=== PATIENT | male | born 1985 | race American Indian/Alaskan Native ===

== ENCOUNTER 2017-04-10 22:50 | Emergency (ER) | payer SELFPAY ==
[2017-04-10 22:50] VITALS: BMI 26.6
[2017-04-10 23:34] VITALS: BP 144/72; PULSE 72; RESP 20; TEMP 98.6; O2SAT 98
--- NOTE | 2017-04-11 00:34 | C.PDOC ---
History Of Present Illness A 31 y/o male c/o right hand and wrist pain that began after being upset and punching a wall today. Pt denies fever, chills, nausea, vomiting, weakness, numbness, or any other complaints. Time Seen by Provider: 04/10/17 23:41 Chief Complaint (Nursing): Upper Extremity Problem/Injury History Per: Patient History/Exam Limitations: no limitations Onset/Duration Of Symptoms: Hrs Current Symptoms Are (Timing): Still Present Severity: Mild Recent travel outside of the [place] States: No Additional History Per: Patient Past Medical History Reviewed: Historical Data, Nursing Documentation, Vital Signs Vital Signs: Last Vital Signs Temp 98.6 F 04/10/17 23:33 Pulse 72 04/10/17 23:33 Resp 20 04/11/17 00:43 BP 144/72 04/10/17 23:33 Pulse Ox 98 04/11/17 00:36 - [employer] Procedures INJECT/INFUSE NEC (12/17/13) Family History: States: Unknown Family Hx - Social History Hx Alcohol Use: No Hx Substance Use: Yes (occasional marijuana) - Immunization History Hx Tetanus Toxoid Vaccination: Yes Hx Influenza Vaccination: No Hx Pneumococcal Vaccination: No Review Of Systems Constitutional: Negative for: Fever, Chills Gastrointestinal: Negative for: Nausea, Vomiting Musculoskeletal: Positive for: Hand Pain (Right hand and wrist pain) Neurological: Negative for: Weakness, Numbness Physical Exam - Physical Exam Appears: Non-toxic, No Acute Distress Skin: Warm, Dry Head: Atraumatic, Normacephalic Eye(s): bilateral: Normal Inspection Cardiovascular: Rhythm Regular, No Murmur Respiratory: Normal Breath Sounds, No Accessory Muscle Use, No Wheezing Extremity: Normal ROM, Tenderness (Dorsal aspect of the right hand), Capillary Refill (<2secs), No Deformity, No Swelling Extremity: Bilateral: Normal Color And Temperature, Normal ROM Pulses: Left Radial: Normal, Right Radial: Normal Neurological/Psych: Oriented x3, Normal Speech, Normal Cognition, Normal Motor ( Good strength), Normal Sensation, Other (No focal deficit) ED Course And Treatment O2 Sat by Pulse Oximetry: 98 (RA) Pulse Ox Interpretation: Normal Progress Note: Impression: 31 y/o male c?o right hand and wrist pain after puncjinh a wall today. Plans: Motrin PO, XRAY of right hand. XRAY: no fractures or dislocation. Hand was placed in a wrist splint and was advised to follow up with PMD for further evaulation. Disposition Counseled Patient/Family Regarding: Diagnosis, Need For Followup, Rx Given - Disposition Referrals: [facility] [Outside] Disposition: HOME/ ROUTINE Disposition Time: 00:28 Condition: STABLE Additional Instructions: Keep splint on for support May apply ICE to area Take meds as directed Return to ER if worse Prescriptions: Ibuprofen [Motrin] 600 mg PO Q6H #20 tab Instructions: Contusion in Adults (ED) Forms: Work Excuse - Clinical Impression Clinical Impression: Hand injury - Scribe Statement The provider has reviewed the documentation as recorded by the Scribe Shashank langston All medical record entries made by the Scribe were at my direction and personally dictated by me. I have reviewed the chart and agree that the record accurately reflects my personal performance of the history, physical exam, medical decision making, and the department course for this patient. I have also personally directed, reviewed, and agree with the discharge instructions and disposition.
--- NOTE | 2017-04-11 09:36 | RAD ---
PROCEDURE: Right Hand Radiographs. HISTORY: pain, swelling, punched wall COMPARISON: None. FINDINGS: BONES: There is a new minimally displaced intra-articular fracture of the base of the 1st metacarpal consistent with degraded study fracture. There appears to be surrounding soft tissue swelling JOINTS: As above. No osteoarthritic changes. SOFT TISSUES: As above. No radiopaque foreign OTHER FINDINGS: None. IMPRESSION: Mcgowan's fracture base of the 1st metacarpal. . Note that the emergency room PA at the [facility] was informed these findings at 9:34 a.m. with written down and read back verification. . Note that this report was placed in PA review folder for followup
== END 2017-04-11 00:43 | disposition home or self-care (01) ==
LOC: C.ER 22:50
DX: S69.91XA Unspecified injury of right wrist, hand and finger(s), initial encounter (principal); W22.09XA Striking against other stationary object, initial encounter; Y92.89 Other specified places as the place of occurrence of the external cause

== ENCOUNTER 2017-04-11 11:37 | Emergency (ER) | payer OTHER ==
[2017-04-11 11:52] VITALS: BMI 29.0
[2017-04-11 11:56] VITALS: TEMP 98.2
--- NOTE | 2017-04-11 12:59 | C.PDOC ---
History Of Present Illness 31-year-old male, presents to the emergency department called back due to radiology discrepancy. Patient was seen in ED last night due to right hand pain that began after being upset and punching a wall. Patient had an x-ray that was read negative. Radiologist called early today with (+) RIght hand Groton's fracture. Patients was called early today and request to return to ED for splint application. At the time of evaluation, pt still c/o Right hand pain, noted more swelling today. Otherwise, denies weakness, sensory or vascular deficits to Right hand. Time Seen by Provider: 04/11/17 12:02 Chief Complaint (Nursing): Upper Extremity Problem/Injury History Per: Patient History/Exam Limitations: no limitations Current Symptoms Are (Timing): Still Present Severity: Moderate Past Medical History Reviewed: Historical Data, Nursing Documentation, Vital Signs Vital Signs: Last Vital Signs Temp 98.2 F 04/11/17 11:52 Pulse 81 04/11/17 11:52 Resp 18 04/11/17 11:52 BP 131/89 04/11/17 11:52 Pulse Ox 99 04/11/17 14:11 - [facility] Procedures INJECT/INFUSE NEC (12/17/13) Family History: States: No Known Family Hx - Social History Hx Alcohol Use: No Hx Substance Use: Yes (occasional marijuana) - Immunization History Hx Tetanus Toxoid Vaccination: Yes Hx Influenza Vaccination: No Hx Pneumococcal Vaccination: No Review Of Systems Musculoskeletal: Positive for: Hand Pain Physical Exam - Physical Exam Appears: Well, Non-toxic, No Acute Distress Skin: Normal Color, Warm, No Ecchymosis Extremity: Tenderness (tenderness over Right 1st MCPJ, no palpable deformity. No skin changes. Mild discomfort on FAROM of Right hand du eto pain, no neurovascular deficits distally to injury.), Capillary Refill (less than 2sec to Rigt hand), No Deformity, Swelling (diffuse mild dorsal Right hand edema.) Neurological/Psych: Oriented x3, Normal Speech, Normal Motor, Normal Sensation, Normal Reflexes ED Course And Treatment O2 Sat by Pulse Oximetry: 99 Pulse Ox Interpretation: Normal - Other Rad Hand X-Ray: Read By Radiologist Interpretation: Accession No. : [id number]. Patient Name / ID : DEANGELO ASKEW / [id number]. Exam Date : 04/10/2017 23:44:50 ( Approved ). Study Comment : Sex / Age : M / 31Y. Creator : Lucien Cowart MD. Dictator : Lucien Cowart MD. Solder Sprayer : Under Ground Miner : Lucien Cowart MD. Approver2 : Report Date : 04/11/2017 09:35:14. My Comment : . PROCEDURE: Right Hand Radiographs. HISTORY: pain, swelling, punched wall. COMPARISON: None. FINDINGS: BONES: There is a new minimally displaced intra-articular fracture of the base of the 1st metacarpal consistent with degraded study fracture. There appears to be surrounding soft tissue swelling. JOINTS: As above. No osteoarthritic changes. SOFT TISSUES: As above. No radiopaque foreign. OTHER FINDINGS: None. IMPRESSION: Mcgowan's fracture base of the 1st metacarpal. . Note that the emergency room PA at the [facility] was informed these findings at 9:34 a.m. with written down and read back verification. . Note that this report was placed in PA review folder for followup Progress Note: CAse discussed with [id number] and splint with outpt f /u on 04/17/17 scheduled for further eval and tx. Splint applied. Pt advised and ref. for further f/u. Understand, stable for discharge now. Orthopedic Time Performed: 12:20 Time Out: Side verified, Site verified, Patient ID confirmed Procedure: Splint Type: Thumb spica Location: Right, Hand Consent obtained: Emergent consent implied Performed by: Mid-level Provider Diagnosis: Fracture Location: Right Bone: Metacarpal, 1st Disposition Counseled Patient/Family Regarding: Studies Performed, Diagnosis, Need For Followup, Rx Given - Disposition Referrals: Fabi Dos Santos MD [Staff Provider] - Disposition: HOME/ ROUTINE Disposition Time: 14:05 Condition: STABLE Additional Instructions: FOLLOW UP WITH DR. DOS SATNOS SCHEDULED ON KALLI 04/17/2017 AT 2:30 PM SPLINT PAIN MEDICATION NEED RETURN TO ED AT ANY TIME IF ANY WORSENING OR NEW CHANGES. Prescriptions: oxyCODONE/Acetaminophen [Percocet 5/325 mg Tab] 1 tab PO TID #10 tab Instructions: Finger Fracture (ED) - Clinical Impression Clinical Impression: Finger fracture, right - Scribe Statement The provider has reviewed the documentation as recorded by the Elayne Garcia All medical record entries made by the Demetriaibfrederick were at my direction and personally dictated by me. I have reviewed the chart and agree that the record accurately reflects my personal performance of the history, physical exam, medical decision making, and the department course for this patient. I have also personally directed, reviewed, and agree with the discharge instructions and disposition.
[2017-04-11] MEDS ORDERED: Oxycodone/Acetaminophen 5/325 mg Tab PO STA (13:17)
[2017-04-11] MEDS ORDERED: Oxycodone/Acetaminophen 5/325 mg Tab ONE (13:31)
--- NOTE | 2017-04-11 14:36 | RAD ---
PROCEDURE: Right Hand Radiographs. HISTORY: injury COMPARISON: None. FINDINGS: BONES: Normal. No fracture. JOINTS: Normal. No osteoarthritic changes. SOFT TISSUES: Normal. OTHER FINDINGS: None. IMPRESSION: No evidence of acute fracture or dislocation.
[2017-04-11 14:58] VITALS: BP 129/82; PULSE 70; RESP 16; O2SAT 98
== END 2017-04-11 14:58 | disposition home or self-care (01) ==
LOC: C.ER 11:37
DX: S62.211 Bennett's fracture, right hand (principal); W22.8XXD Striking against or struck by other objects, subsequent encounter

== ENCOUNTER 2017-04-16 15:18 | Emergency (ER) | payer OTHER ==
[2017-04-16 15:19] VITALS: BMI 29.0
[2017-04-16 15:24] VITALS: BP 126/79; PULSE 78; RESP 16; TEMP 98.2; O2SAT 98
--- NOTE | 2017-04-16 15:37 | C.PDOC ---
History Of Present Illness 31 y/o male presents to the ED for evaluation of right thumb pain which began around 6 days ago. Patient was evaluated in ED on 04/10 and 04/11 for similar complaints. Patient has failed to follow up as instructed. Patient has [facility] care and wants another referral for Dr. Gooden. Patient has been taking Motrin and applying ice to the affected area with improvement and decreased swelling. Patient denies extremity numbness/weakness. Time Seen by Provider: 04/16/17 15:32 Chief Complaint (Nursing): Upper Extremity Problem/Injury History Per: Patient History/Exam Limitations: no limitations Onset/Duration Of Symptoms: Days Current Symptoms Are (Timing): Still Present Quality: "Pain" Additional History Per: Patient Past Medical History Reviewed: Historical Data, Nursing Documentation, Vital Signs Vital Signs: Last Vital Signs Temp 98.2 F 04/16/17 15:22 Pulse 78 04/16/17 15:22 Resp 16 04/16/17 15:22 BP 126/79 04/16/17 15:22 Pulse Ox 98 04/16/17 17:42 - Medical History PMH: No Chronic Diseases Surgical History: No Surg Hx - [facility] Procedures INJECT/INFUSE NEC (12/17/13) Family History: States: Unknown Family Hx - Social History Hx Alcohol Use: No Hx Substance Use: Yes (occasional marijuana) - Immunization History Hx Tetanus Toxoid Vaccination: Yes Hx Influenza Vaccination: No Hx Pneumococcal Vaccination: No Review Of Systems Except As Marked, All Systems Reviewed And Found Negative. Musculoskeletal: Positive for: Other (+right thumb pain ) Physical Exam - Physical Exam Appears: Non-toxic, No Acute Distress Skin: Normal Color, Warm, Dry Eye(s): bilateral: Normal Inspection Extremity: Normal ROM, Tenderness (base of right thumb), Capillary Refill (less than 2 seconds ), No Deformity, Swelling (base of right thumb) Pulses: Right Radial: Normal Neurological/Psych: Oriented x3, Normal Speech, Normal Cognition Gait: Steady ED Course And Treatment O2 Sat by Pulse Oximetry: 98 (on RA) Pulse Ox Interpretation: Normal Progress Note: ice pack and motrin. splint re-wrapped for comfort and R thum immobility. refer to Dr Gooden (Was Ortho/Hand Stamp Analyst on for pt's initial 2 visits) Reevaluation Time: 15:47 Reassessment Condition: Improved Medical Decision Making Medical Decision Making: R thumb Mcgowan's fracture (base of R 1st metacarpal) now splinted, pending f/u with Ortho now that [facility] in place. Disposition Doctor Will See Patient In The: Office Counseled Patient/Family Regarding: Studies Performed, Diagnosis - Disposition Referrals: Russel Gooden MD [Staff Provider] - Disposition: HOME/ ROUTINE Disposition Time: 15:49 Condition: GOOD Additional Instructions: keep splint in place ice packs 1/2 hour per hour, nothing hot. Motrin 600 mg every 6 hours as needed for pain/swelling Pepcid 20 mg @ night to prevent stomach irritation from the Motrin Call Dr. Gooden's office (Orthopedics/Hand specialist) Free clinic in THIS building, call for an appointment. Instructions: Thumb Fracture (ED) - Clinical Impression Clinical Impression: Fracture of thumb - Scribe Statement The provider has reviewed the documentation as recorded by the Scribe (Nicolette Nixon) Provider Attestation: All medical record entries made by the Scribe were at my direction and personally dictated by me. I have reviewed the chart and agree that the record accurately reflects my personal performance of the history, physical exam, medical decision making, and the department course for this patient. I have also personally directed, reviewed, and agree with the discharge instructions and disposition.
== END 2017-04-16 16:04 | disposition home or self-care (01) ==
LOC: C.ER 15:18
DX: S62.501D Fracture of unspecified phalanx of right thumb, subsequent encounter for fracture with routine healing (principal); X58.XXXD Exposure to other specified factors, subsequent encounter